=== PATIENT | male | born 1960 | race American Indian/Alaskan Native ===

== ENCOUNTER 2024-09-09 08:55 | Day surgery (SDC) | payer MEDICARE, OTHER ==
[2024-09-02 11:47] VITALS: BP 113/70
[~2024-09-09] VITALS: Ht 188 cm; Wt 115.9 kg
--- NOTE | ~2024-09-09 | OR ---
[facility] [address], [place] [address] Draft DATE OF OPERATION: 09/08/2024 SURGEON: Nate Augustin MD PREOPERATIVE DIAGNOSES: 1. Personal history of colonic polyps in 2013 and in 2019 at age of 52 and 58. 2. Diverticulosis. POSTOPERATIVE DIAGNOSES: 1. A 4 mm polyps x3 at 10 cm in rectum. 2. A 4 mm polyp x1 at 50 cm in left colon. 3. Minimal left-sided diverticulosis. 4. Minimal internal hemorrhoids. PROCEDURE: Colonoscopy with hot biopsy. ESTIMATED BLOOD LOSS: None. INDICATIONS: Satnam is a 64-year-old gentleman, asked to see me for followup colonoscopy. He said he has no lower GI complaints. He has no family history of colon cancer or polyps. We had discovered his AFib during one of his previous colonoscopies. He has been evaluated by the [facility] group. When he was having his spine surgery, they did bridging therapy. He said he almost bled to . They had to pack his spine and reverse the blood thinner. He is now on aspirin and does very well. Today, he was actually in sinus rhythm. He is now disabled because of his back and spine surgeries. He said he can get around, but he is not allowed to lift much. I helped him with hyperplastic and adenomatous polyps in 2013 and in 2019 at the ages of 52 and 58. He had some diverticulosis as well. We know before that he use an enormous amount of Versed and fentanyl and he still using marijuana for his chronic pain. Consequently, we asked for monitored anesthesia care, propofol infusion on this occasion that proved to be a cody decision. It worked out very nicely. In that regard, he needed preoperative blood work and an EKG. He knows an adult person has to take him home afterwards. In the office, I gave him a pamphlet on colonoscopy and we reviewed the nature of the test. There is risk including, but not limited to gas bloating, crampy abdominal pain, bleeding, perforation requiring surgery, and missed diagnosis. We also reviewed the written instructions for the bowel prep line by line. It is the third time he has taken the same bowel prep. We had him hold his aspirin just three PATIENT NAME: SATNAM HERNANDEZ OPERATIVE REPORT DATE OF : 58 REPORT #: [id number] PHYSICIAN: NATE AUGUSTIN MD PCP: [facility] REPORT IS CONFIDENTIAL AND NOT TO BE RELEASED WITHOUT AUTHORIZATION [facility] [address], [place] [address] Draft days prior to the procedure. He had expressed understanding and wished to proceed. PROCEDURE IN DETAIL: Satnam was taken into our endoscopy suite and placed in the left lateral decubitus position. He was given monitored anesthesia care propofol infusion per our nurse websphere commerce architect. A digital rectal exam was performed and this was unremarkable. He has good sphincter tone. No external hemorrhoids. No masses. The adult colonoscope was introduced and advanced under direct visualization of camera. It took just a little extra propofol and abdominal compression to get the scope directly into the cecum itself. His prep overall was satisfactory. He could certainly use a little more polyethylene glycol in the future. We could easily see the appendiceal orifice and ileocecal valve. The scope was then slowly withdrawn. We took several pictures throughout for photodocumentation. He had a 4 mm polyp at 50 cm and three 4 mm polyps in the rectum at 10 cm. They were all easily removed with the help of hot biopsy forceps. He does have some diverticula in the left colon. They were moderate in size, few in number and scattered about. We had retroflexed the scope in the rectum, he does have minimal internal hemorrhoid tissue. After this, the gas was suctioned out, the colonoscope removed. Satnam tolerated the procedure quite well. RECOMMENDATIONS: Satnam will follow up my office in 7 to 14 days to review his results. He will stay on the five-year rotation. He might increase his polyethylene glycol in the future up to a full gallon of polyethylene glycol. He should always use monitored anesthesia care in the future. Nate Augustin MD [facility] /[id number] cc: [facility] Nate Augustin MD Patient Chart PATIENT NAME: SATNAM HERNANDEZ OPERATIVE REPORT DATE OF : 58 REPORT #: [id number] PHYSICIAN: NATE AUGUSTIN MD PCP: [facility] REPORT IS CONFIDENTIAL AND NOT TO BE RELEASED WITHOUT AUTHORIZATION [address] [address] Draft Copies: NATE BRIAN MD ~ PATIENT NAME: SATNAM HERNANDEZ OPERATIVE REPORT DATE OF : 58 REPORT #: [id number] PHYSICIAN: NATE AUGUSTIN MD [facility] REPORT IS CONFIDENTIAL AND NOT TO BE RELEASED WITHOUT AUTHORIZATION
[~2024-09-09 08:55] MED LIST: ADULT ASPIRIN R81 MG PO; ANTABUSE250 MG PO; CYCLOBENZAPRINE10 MG PO; FLOMAX0.4 MG PO; LIDODERM1 EACH TOP; LOPID600 MG PO; METHOCARBAMOL750 MG PO; NEURONTIN300 MG PO; NORCO 5-325 TA1 EACH PO; OMEGA-31000 MG PO; PRILOSEC20 MG PO; ROSUVASTATIN CA10 MG PO; STOOL SOFTENER250 MG PO
[2024-09-09 09:13] VITALS: BP 152/74
[2024-09-09] MEDS ORDERED: fentaNYL citrate 100 MCG/2 ML VIAL IV PRN (09:30)
[2024-09-09] MEDS ORDERED: MIDAZOLAM HCL 5 MG/5 ML VIAL IV PRN (09:30)
[2024-09-09] MEDS ORDERED: IBLOOD GLUCOSE TEST STRIP 1 EA TEST VI PRN (09:30)
[2024-09-09] MEDS ORDERED: LIDOCAINE HCL 1% 5 ML SDV INJ ONE (09:30)
[2024-09-09] MEDS ORDERED: LACTATED RINGER'S 1,000 ML IV SCH (09:30)
[2024-09-09] MEDS ORDERED: propofoL 200 MG/20 ML VIAL ONE (09:52)
[2024-09-09] MEDS ORDERED: LIDOCAINE HCL 2% 5 ML SDV ONE (09:52)
--- NOTE | 2024-09-09 10:48 | NUR ---
09/09/24 [place] 1044-PATIENT ARRIVED TO PACU ON 6L MASK NONAROUSABLE RR EVEN. PATIENT LAYING LEFT LATERAL ABDOMEN SOFT AND ROUND. IVF INFUSING. SR
[2024-09-09 11:24] VITALS: BP 131/92
--- NOTE | 2024-09-13 11:32 | PATH ---
[facility] [address] [facility] [place], [place] [address] Signed SPECIMEN(S): A RECTAL POLYP, 10 CM SPECIMEN(S): B DESCENDING POLYP, 50 CM SPECIMEN SOURCE: A. RECTAL POLYP, 10 CM B. DESCENDING POLYP, 50 CM CLINICAL HISTORY: Surveillance history polyps, post polyps x 4. FINAL PATHOLOGIC DIAGNOSIS: A. Rectum, 10 cm, polypectomy: - Tubular adenoma B. Colon, descending at 50 cm, polypectomy: - Tubular adenoma BRP MICROSCOPIC EXAMINATION: Histologic sections of all submitted blocks are examined by light microscopy. These findings, together with the gross examination, support the pathologic diagnosis. GROSS DESCRIPTION: A. The specimen, labeled and designated "Antonia Hauser, 1., " and designated on the requisition "Rectum polypectomy, 10 cm," is received in formalin and consists of three sullivan soft tissue fragments that measure 0.2 x 0.3 cm in greatest dimension. The specimen is entirely submitted in (A1). B. The specimen, labeled and designated "Antonia Hauser, 2.," and designated on the requisition "descending/left polypectomy, 50 cm," is received in formalin and consists of one sullivan soft tissue fragment that is 0.3 cm in greatest dimension. The specimen is entirely submitted in (B1). FB (under the direct supervision of a pathologist) The Gross Description was prepared using a voice recognition system. The report was reviewed for accuracy; however, sound-alike word errors, addition and/or deletions may occur. If there is any question about this report, please contact Client Services. ADDITIONAL NOTES: Immunohistochemical and/or in situ hybridization studies if performed in this PATIENT NAME: TRINI HERNANDEZ PATHOLOGY DATE OF : 58 REPORT #: [id number] PHYSICIAN: JACKELIN MENDOZA PCP: [facility] REPORT IS CONFIDENTIAL AND NOT TO BE RELEASED WITHOUT AUTHORIZATION [facility] [address] [place], [place] [address] Signed case included appropriate positive controls that reacted as expected. This test was developed and its performance characteristics determined by [employer]. It has not been cleared or approved by the U.S. Food and Drug Administration. The FDA has determined that such clearance or approval is not necessary. This test is used for clinical purposes. It should not be regarded as investigational or for research. [employer] [facility] is certified under the Clinical Laboratory Improvement Amendments of 1988 (CLIA) as qualified to perform high complexity clinical laboratory testing. PERFORMING LABORATORY: Technical component was performed by [facility], [address] [place] [address] (CLIA# [id number]). Professional interpretation was performed by [facility], [address] [place] [address] (CLIA#: [id number]). Diagnostician: Yossi Sweeney MD Pathologist Electronically Signed 09/13/2024 Copies: ~ PATIENT NAME: TRINI HERNANDEZ PATHOLOGY DATE OF : 58 REPORT #: [id number] PHYSICIAN: JACKELIN MENDOZA [facility] REPORT IS CONFIDENTIAL AND NOT TO BE RELEASED WITHOUT AUTHORIZATION
== END 2024-09-09 11:30 | disposition home or self-care (01) ==
LOC: DS 08:55
PROVIDERS: ATTEND Colon & Rectal Surgery
PROC: 0DBP8ZZ Excision of Rectum, Via Natural or Artificial Opening Endoscopic (ICD-10-PCS; principal; 2024-09-09 10:30)
DX: Z12.11 Encounter for screening for malignant neoplasm of colon (principal); D12.4 Benign neoplasm of descending colon; D12.8 Benign neoplasm of rectum; K57.30 Diverticulosis of large intestine without perforation or abscess without bleeding; K64.8 Other hemorrhoids; E78.00 Pure hypercholesterolemia, unspecified; K21.9 Gastro-esophageal reflux disease without esophagitis; I48.0 Paroxysmal atrial fibrillation; F32.A Depression, unspecified; F17.210 Nicotine dependence, cigarettes, uncomplicated; E66.3 Overweight; Z68.32 Body mass index [BMI] 32.0-32.9, adult; Z86.0101 Personal history of adenomatous and serrated colon polyps; Z79.82 Long term (current) use of aspirin; Z79.899 Other long term (current) drug therapy
CPT/HCPCS: J2003; J2704; J7121